=== PATIENT | male | born 1990 | race Caucasian/White ===

== ENCOUNTER 2020-12-17 08:19 | Outpatient (REF) | payer OTHER, SELFPAY | END 2020-12-17 08:20 | disposition home or self-care (01) | LOC: HO.HOSX 08:19 | PROVIDERS: Visit Provider Orthopaedic Surgery | DX: Z13.89 Encounter for screening for other disorder (principal) ==

== ENCOUNTER 2022-06-29 23:53 | Emergency (ER) | payer OTHER, SELFPAY ==
--- NOTE | ~2022-06-29 | XR_ITS ---
EXAMINATION: XR HAND, LEFT CLINICAL INFORMATION: Fall COMPARISON: 04/17/2018 TECHNIQUE: PA, lateral, and oblique views of the left hand. FINDINGS: No fracture or dislocation. Alignment maintained. Joint spaces are maintained. The soft tissues appear unremarkable. XR/XR hand LT 2V IMPRESSION: Normal left hand.
--- NOTE | ~2022-06-29 | XR_ITS ---
EXAMINATION: XR WRIST, LEFT CLINICAL INFORMATION: Fall with wrist pain COMPARISON: None TECHNIQUE: PA, lateral, and oblique views of the left wrist. FINDINGS: No fracture or dislocation. The carpal rows are well aligned. Joint spaces maintained. The soft tissues are unremarkable. XR/XR wrist LT min 3V IMPRESSION: No fracture or malalignment.
[2022-06-30 00:07] VITALS: BP 128/88; PULSE 84; RESP 16; TEMP 36.6; O2SAT 98; BMI 28.3
--- NOTE | 2022-06-30 01:15 | ED_ITS ---
HPI - Extremity Problem General Chief complaint: Extremity Injury, Upper Stated complaint: fall, hurt wrist Time Seen by Provider: 06/30/22 00:56 Source: patient Mode of arrival: ambulatory Limitations: no limitations History of Present Illness HPI Narrative: 31-year-old male came in for evaluation of left wrist pain after fall. Right hand dominant patient work as a dedicated truck driver and delivery came in after fell 2 steps of stairs landing on his outstretched hand and wrist complaining of left wrist pain and swelling. Patient declined headache, no LOC, no neck pain, no chest pain, no abdominal pain. Related Data Home Medications Medication Instructions Recorded Confirmed No Known Home Meds 11/20/20 12/05/20 Allergies Allergy/AdvReac Type Severity Reaction Status Date / Time amoxicillin [AMOXICILLIN] Allergy Unknown UNKNOWN Verified 06/30/22 00:11 Review of Systems Review of Systems: All other systems are reviewed and are negative Constitutional: Reports as per HPI and Reports no additional constitutional complaints Eyes: Reports as per HPI and Reports no additional eye complaints Reports system reviewed and no additional complaints, except as documented Cardiovascular: Reports as per HPI and Reports no additional cardiovascular complaints Respiratory: Reports as per HPI and Reports no additional respiratory complaints Gastrointestinal: Reports as per HPI and Reports no additional gastrointestinal complaints Genitourinary: Reports no additional female genitourinary complaints Musculoskeletal: Reports no additional musculoskeletal complaints Skin/Breast: Reports system reviewed and no additional complaints, except as docu Psychiatric: Reports no additional psychiatric complaints Endocrine: Reports no additional endocrine complaints Hematologic/Lymphatic: Reports no additional hematologic/lymphatic complaints Allergic/Immunologic: Reports no additional allergic/immunologic complaints Reports system reviewed and no additional complaints, except as documented and Reports Abnormal speech present [facility] Family History Family History Mother Prediabetes Afib Father No problems noted. Sister No problems noted. Sister No problems noted. Sister No problems noted. Son No problems noted. Daughter No problems noted. Maternal Uncle Myocardial infarct Maternal Aunt Myocardial infarct Social History Social History Housing: Apartment Alcohol intake: never Patient Tobacco Use Status: Never used Tobacco service: No Current occupational status: unemployed Current occupational exposures/hazards: No Physical Exam Vital Signs: Vital Signs: Last Vital Signs Temp 97.9 F 06/30/22 00:07 Pulse 84 06/30/22 00:07 Resp 16 06/30/22 00:07 BP 128/88 06/30/22 00:07 Pulse Ox 98 06/30/22 00:07 O2 Del Method 06/30/22 00:07 BMI result Body Mass Index 28.3 Vital signs have been reviewed as appeared to be correct. Blood pressure normal. Heart rate normal. Respiration rate normal. Temperature normal. Oxygen saturation normal. Appearance: Alert. Oriented X3. No acute distress. Head: Normal external exam. Normocephalic. Atraumatic. No Tucker signs noted. No raccoon eyes noted Eyes: PERRLA. EOMI. Conjunctiva and sclera normal. Eyelids normal. ENT: TM's Normal. Pharynx normal. Uvula midline. Moist mucous membranes. No trismus noted. No drooling noted. No muffled voice noted. Neck: Normal inspection. Neck supple. FROM. No adenopathy. Thyroid Normal. No meningeal signs. No neck mass noted. CVS: Normal heart rate and rhythm. Heart sound normal. No murmurs noted. Pulses normal throughout. Respiratory: No respiratory distress. Painless inspiration. Breath sounds normal. No wheezes/rales/rhonchi noted. Chest nontender. No accessory muscle usage noted or decreased air movement noted. Abdomen: Soft and nontender. Bowel sounds normal in all 4 quadrants. No distention noted. No organomegaly noted. No visible injury noted. Back: No CVA tenderness. Full range of motion noted. Skin: Skin warm and dry. Normal skin color. Normal skin turgor. No rash es/lesions/lacerations noted. Extremities: Left hand/wrist exam: Tenderness over the radial side of left wrist with no deformity, no step-off, tender for range of motion to the left wrist and left hand. Neuro: Oriented X 3. Cranial nerve exam: II-XII are grossly intact No motor deficit. No sensory deficit. Reflexes normal. Course Course Course Narrative: Left wrist contusion after trauma. ice/NSAIDs/follow-up with ortho/splint Medical Decision Making Differential Diagnosis Differential Diagnoses: The differential diagnosis associated with the presentation includes (Left wrist fracture, sprain, contusion.) Independent Interpretation I performed an independent interpretation of an: Plain X-Ray (Left hand/wrist: No acute fracture.) Radiology Impression Discussion of test interpretation with radiology: I have reviewed the radiologist's reading. Discharge Plan Discharge Clinical Impression: Contusion of left wrist Patient Disposition: Home, Self-Care Instructions: Wrist Injury (ED) Prescriptions: No Action No Known Home Meds Referrals: Antonio Cullen MD [Physician] - Physician,Unknown J [Primary Care Provider] - Stand Alone Forms: Work/School Release
== END 2022-06-30 01:56 | disposition home or self-care (01) ==
PROVIDERS: Emergency Provider Emergency Medicine; PCP Internal Medicine
DX: S60.212A Contusion of left wrist, initial encounter (principal); W10.8XXA Fall (on) (from) other stairs and steps, initial encounter; Y93.89 Activity, other specified; Y92.9 Unspecified place or not applicable; Y99.9 Unspecified external cause status
CPT/HCPCS: 73110; 73120; 99282; 99283

== ENCOUNTER 2022-07-21 14:14 | Outpatient (REF) | payer OTHER, SELFPAY ==
[2022-07-21 15:29] LABS: Hematocrit 46.7 % (42.0-52.0); Hemoglobin 15.7 g/dl (14.0-18.0); Mean Corpuscular HGB Conc 33.6 g/dl (31.0-36.0); Mean Corpuscular Hemoglobin 29.7 pg (27.0-33.0); Mean Corpuscular Volume 88.4 fL (80.0-98.0); Mean Platelet Volume 9.7 fL (9.4-12.4); Platelet Count 235 X10*3/uL (160-400); Red Blood Count 5.28 X10*6/uL (4.60-5.80); Red Cell Distribution Width 12.9 % (11.0-16.0); White Blood Count 8.7 X10*3/uL (4.8-10.8)
[2022-07-21 15:59] LABS: Alanine Aminotransferase 33 U/L (0-40); Albumin Level 4.3 g/dL (3.5-5.0); Alkaline Phosphatase 75 U/L (39-117); Anion Gap 11 (12-20); Aspartate Amino Transferase 16 U/L (5-37); Bilirubin Total 0.2 mg/dL (0.0-1.0); Blood Urea Nitrogen 13 mg/dL (9-16); Calcium 9.2 mg/dL (8.4-10.2); Carbon Dioxide 29 mmol/L (22-29); Chloride 105 mmol/L (96-108); Estimated Glomerular Filt Rate > 60; Glucose Random 85 mg/dL (60-115); Potassium 3.7 mmol/L (3.3-5.1); Sodium 141 mmol/L (135-145); Total Protein 6.7 g/dL (6.5-8.0)
[2022-07-21 16:14] LABS: TSH reflex Free T4 1.62 uIU/mL (0.32-4.0); Vitamin D 25-OH Total 19.5 ng/mL (>30)
== END 2022-07-21 14:15 | disposition home or self-care (01) ==
LOC: HO.LAB 14:14
PROVIDERS: PCP Internal Medicine; Visit Provider Nurse Practitioner Family
DX: F32.A Depression, unspecified (principal)
CPT/HCPCS: 36415; 80053; 82306; 84443; 85027

== ENCOUNTER 2022-08-25 14:13 | Outpatient (REF) | payer OTHER, SELFPAY | END 2022-08-25 14:14 | disposition home or self-care (01) | LOC: HO.HOSX 14:13 | PROVIDERS: Visit Provider Physician Assistant | DX: Z13.89 Encounter for screening for other disorder (principal) ==

== ENCOUNTER 2022-11-29 12:37 | Emergency (ER) | payer OTHER, SELFPAY ==
--- NOTE | ~2022-11-29 | XR_ITS ---
EXAMINATION: XR CHEST CLINICAL INFORMATION: Heart racing. COMPARISON: None available. TECHNIQUE: Frontal view of the chest was obtained. FINDINGS: No significant abnormality is noted involving the heart, lungs, mediastinum, bony thorax or soft tissues. XR/XR chest 1V IMPRESSION: No acute cardiopulmonary process.
[2022-11-29 12:44] VITALS: BP 139/98; PULSE 85; RESP 18; TEMP 36.7; O2SAT 99; BMI 28.4
--- NOTE | 2022-11-29 12:44 | ED_ITS ---
HPI - General Adult General Chief complaint: Arrhythmia/Palpitations Stated complaint: chest pain Time Seen by Provider: 11/29/22 16:02 Source: patient Mode of arrival: ambulatory Limitations: no limitations History of Present Illness HPI narrative: 31-year-old male with history of asthma presents to the ER with complaints of onset of palpitations, shortness of breath, disorientation which began at 10:00 while he was sitting down fishing. Patient reports intermittent episodes every 15 minutes for 1 hour after initial onset. Patient reports no current symptoms. Symptoms were not exertion. He had no associated vomiting, diaphoresis, dizziness, headache, cough or fever. Patient report daily caffeine intake. Denies any pre workout use, energy drink use. No recent travel, recent surgeries, leg swelling or leg pain. Patient does smoke cigarettes, occasional marijuana use. No additional substance or alcohol use Related Data Previous Rx's Medication Instructions Recorded hydroxyzine HCl 25 mg tablet 25 mg PO BID PRN anxiety #14 tabs 07/21/22 sertraline 25 mg tablet 25 mg PO DAILY #30 tabs 07/21/22 cholecalciferol (vitamin D3) 50 50 mcg PO DAILY #90 tabs 07/24/22 mcg (2,000 unit) tablet Allergies Allergy/AdvReac Type Severity Reaction Status Date / Time amoxicillin [AMOXICILLIN] Allergy Unknown UNKNOWN Verified 07/21/22 13:39 Review of Systems Review of Systems: Yes all other systems are reviewed and are negative Constitutional: Constitutional: Reports no additional constitutional complaints, Denies body ache(s), Denies chills, Denies fever(s), Denies he adache(s) and Denies weakness Eyes: Eyes: Reports no additional eye complaints and Denies change in vision ENT: Reports system reviewed and no additional complaints, except as documented, Denies dizziness, Denies headache(s), Denies nasal congestion, Denies nasal discharge and Denies neck pain Cardiovascular: Cardiovascular: Reports no additional cardiovascular complaints, Denies chest pain, Denies leg edema, Reports palpitations and Reports dyspnea Respiratory: Respiratory: Reports no additional respiratory complaints, Denies cough and Reports dyspnea Gastrointestinal: Gastrointestinal: Reports no additional gastrointestinal complaints, Denies abdominal pain, Denies diarrhea, Denies nausea and Denies vomiting Genitourinary: Genitourinary: Denies urinary incontinence Musculoskeletal: Musculoskeletal: Reports no additional musculoskeletal complaints, Denies back pain, Denies arthralgias, Denies joint swelling, Denies neck pain, Denies numbness and Denies tingling Integumentary/Breasts: Skin/Breast: Reports system reviewed and no additional complaints, except as docu and Denies rash Neurologic: Reports system reviewed and no additional complaints, except as documented, Denies dizziness, Denies headache(s), Denies numbness, Denies tingling and Denies weakness Endocrine: Endocrine: Reports palpitations PMFSH Past Medical History Attestation statement: The following information was validated with the patient. Source: old records reviewed and nursing notes reviewed Family History Family History Mother Prediabetes Afib Father No problems noted. Sister No problems noted. Sister No problems noted. Sister No problems noted. Son No problems noted. Daughter No problems noted. Maternal Uncle Myocardial infarct Maternal Aunt Myocardial infarct Social History Social History Housing: Apartment Alcohol intake: never Patient Tobacco Use Status: Current everyday Tobacco user Cigarettes Per Day: 3 (pt states 3-5) Advance Directives: No Advance Directives Information Provided: Yes service: No Current occupational status: unemployed Current occupational exposures/hazards: No Cognitive needs: No Hearing needs: No Vision needs: No Physical Exam ED Vital Signs: Vital Signs - 24 hr 11/29/22 12:44 11/29/22 15:11 11/29/22 16:50 Temperature 98.1 F 98.4 F 98.6 F Pulse Rate 85 58 45 L Respiratory Rate 18 16 10 L Blood Pressure 139/98 H 126/77 113/63 Pulse Oximetry 99 98 100 Oxygen Delivery Method Room Air Room Air Room Air BMI result Body Mass Index 28.4 Const General: cooperative, healthy appearing, comfortable and no acute distress Orientation/consciousness: patient oriented x3 Limitations: no limitations HENMT Head: Yes normal to inspection Ears: hearing grossly normal bilaterally Eyes General: appearance normal, both eyes and all related structures Pupils: Equal, round and reactive pupils present Neck Neck: Yes normal visual inspection, Yes full ROM, Yes no lymphadenopathy and Yes no meningeal signs Chest Chest palpation & inspection: normal inspection of the chest Resp Effort & Inspection: normal respiratory effort Auscultation: clear to auscultation bilaterally Cardio Rate: regular rate Rhythm: regular rhythm Peripheral pulses: Peripheral pulses 2+ throughout GI Inspection: Yes normal to inspection Palpation (GI): Soft to palpation and nontender General: Yes no CVA tenderness Back/Spine/Pelvis Back: no CVA tenderness Thoracic/Lumbar Spine: thoracic and lumbar spine normal to inspection Skin General skin exam: no rashes or lesions noted Neuro General: patient oriented x3, moves all extremities and no meningeal signs Cranial nerves: Yes Equal, round and reactive pupils present Cognition (Neuro): normal cognition Gait exam (Neuro): Normal gait present Motor exam (neuro): 5/5 motor strength present throughout Sensory Exam: Normal double simultaneous stimulation for sensation Extrem General: Yes normal to inspection, Yes no pedal edema and Yes no calf tenderness Course Course Course Narrative: RME: 31 yold male presents to the ED for heart racing. no other complaints. no SOB, pleurisy, leg swelling, calf pain. labs, EKG, and chest xray ordered Reevaluation(s) Reevaluation #1: LABS WITH TROPONIN X2 ARE NEGATIVE, EKG SHOWS NO ISCHEMIC CHANGES. Chest x-ray is negative for any acute finding. Reviewed worrisome signs and symptoms of when to return to the emergency room. Comfortable plan for discharge home. Medical Decision Making Medical Decision Making [facility] Narrative: 31-year-old male with a history of asthma presents to the ER with 1 hour of intermittent episodes of palpitations, shortness of breath which began at 10:00 this morning while at rest. Patient is currently asymptomatic Will check labs including troponin x2, EKG, chest x-ray Differential Diagnosis Differential Diagnoses: The differential diagnosis associated with the presentation includes ACS, PE, dissection Arrhythmia Anxiety Anemia, electrolyte abnormality Lab Data [facility] Lab Attestation statement: I reviewed the patient's lab results. 11/29/22 13:05 11/29/22 13:06 Labs: Lab Results 11/29/22 11/29/22 11/29/22 Range/Units 13:05 13:05 13:06 WBC 5.7 (4.8-10.8) X10*3/uL RBC 5.18 (4.60-5.80) X10*6/uL Hgb 15.7 (14.0-18.0) g/dl Hct 45.9 (42.0-52.0) % MCV 88.6 (80.0-98.0) fL MCH 30.3 (27.0-33.0) pg MCHC 34.2 (31.0-36.0) g/dl RDW 12.8 (11.0-16.0) % Plt Count 198 (160-400) X10*3/uL MPV 9.3 L (9.4-12.4) fL Immature Gran % (Auto) 0.2 (0.0-0.4) % Neut % (Auto) 47.5 (45-73) % Lymph % (Auto) 38.8 (20-40) % [place] % (Auto) 11.2 H (2-11) % Eos % (Auto) 1.6 (0-4) % Baso % (Auto) 0.7 (0-2) % Lymph # (Auto) 2.2 (1.2-4.9) X10*3/uL [place] # (Auto) 0.6 (0.1-1.2) X10*3/uL Eos # (Auto) 0.1 (0.0-0.4) X10*3/uL Baso # (Auto) 0.0 (0.0-0.2) X10*3/uL Abs Immat Gran (auto) 0.01 (0.00-0.03) X10*3/uL Absolute Neuts (auto) 2.7 (2.0-8.3) x10*3/uL Absolute Nucleated RBC 0.000 (0.0-0.012) X10*3/uL Nucleated RBC % (auto) 0.0 (0.0-0.2) /100WBC PT 11.6 (10.0-13.1) SEC INR 1.0 (0.9-1.1) APTT 31.6 (26.0-36.4) SEC Sodium (135-145) mmol/L Potassium (3.3-5.1) mmol/L Chloride (96-108) mmol/L Carbon Dioxide (22-29) mmol/L Anion Gap (12-20) BUN (9-16) mg/dL Creatinine (0.5-1.4) mg/dL Estim Creat Clear Calc Estimated GFR Random Glucose (60-115) mg/dL Calcium (8.4-10.2) mg/dL Total Bilirubin (0.0-1.0) mg/dL AST (5-37) U/L ALT (0-40) U/L Alkaline Phosphatase (39-117) U/L Troponin I High Sens (<3.5-35.0) ng/L B-Natriuretic Peptide 40 (<100) pg/mL Total Protein (6.5-8.0) g/dL Albumin (3.5-5.0) g/dL 11/29/22 11/29/22 11/29/22 Range/Units 13:06 13:06 16:58 WBC (4.8-10.8) X10*3/uL RBC (4.60-5.80) X10*6/uL Hgb (14.0-18.0) g/dl Hct (42.0-52.0) % MCV (80.0-98.0) fL MCH (27.0-33.0) pg MCHC (31.0-36.0) g/dl RDW (11.0-16.0) % Plt Count (160-400) X10*3/uL MPV (9.4-12.4) fL Immature Gran % (Auto) (0.0-0.4) % Neut % (Auto) (45-73) % Lymph % (Auto) (20-40) % [place] % (Auto) (2-11) % Eos % (Auto) (0-4) % Baso % (Auto) (0-2) % Lymph # (Auto) (1.2-4.9) X10*3/uL [place] # (Auto) (0.1-1.2) X10*3/uL Eos # (Auto) (0.0-0.4) X10*3/uL Baso # (Auto) (0.0-0.2) X10*3/uL Abs Immat Gran (auto) (0.00-0.03) X10*3/uL Absolute Neuts (auto) (2.0-8.3) x10*3/uL Absolute Nucleated RBC (0.0-0.012) X10*3/uL Nucleated RBC % (auto) (0.0-0.2) /100WBC PT (10.0-13.1) SEC INR (0.9-1.1) APTT (26.0-36.4) SEC Sodium 142 (135-145) mmol/L Potassium 4.3 (3.3-5.1) mmol/L Chloride 111 H (96-108) mmol/L Carbon Dioxide 24 (22-29) mmol/L Anion Gap 11 L (12-20) BUN 13 (9-16) mg/dL Creatinine 1.07 (0.5-1.4) mg/dL Estim Creat Clear Calc 123.0 Estimated GFR > 60 Random Glucose 122 H (60-115) mg/dL Calcium 9.3 (8.4-10.2) mg/dL Total Bilirubin 0.4 (0.0-1.0) mg/dL AST 16 (5-37) U/L ALT 29 (0-40) U/L Alkaline Phosphatase 62 (39-117) U/L Troponin I High Sens < 2.7 < 2.7 (<3.5-35.0) ng/L B-Natriuretic Peptide (<100) pg/mL Total Protein 6.9 (6.5-8.0) g/dL Albumin 4.5 (3.5-5.0) g/dL Independent Interpretation I performed an independent interpretation of an: Plain X-Ray Interpretation: I independently reviewed the chest x-ray and agree with the radiologist's report I independently reviewed EKG which shows sinus rhythm with sinus arrhythmia with a rate of 67, normal NM, normal QRS, normal QT Radiology Impression Discussion of test interpretation with radiology: I have reviewed the radiologist's reading. Radiologist Impression: [place] [id number] XRay Report Signed Patient: Jose Begum MR#: [id number] : 1990 Acct:[id number] Age/Sex: 31 / M ADM Date: 11/29/22 Loc: .ED Attending Dr: Ordering Physician: Beau Espinoza Date of Service: 11/29/22 Procedure(s): XR chest 1V Accession Number(s): [id number] cc: Beau Espinoza~ EXAMINATION: XR CHEST CLINICAL INFORMATION: Heart racing. COMPARISON: None available. TECHNIQUE: Frontal view of the chest was obtained. FINDINGS: No significant abnormality is noted involving the heart, lungs, mediastinum, bony thorax or soft tissues. XR/XR chest 1V IMPRESSION: No acute cardiopulmonary process. ? Discharge Plan Discharge Clinical Impression: Palpitations Patient Disposition: Home, Self-Care Instructions: Heart Palpitations (DC) Additional Instructions: Your blood work, EKG and chest x-ray are reassuring Please follow-up with your primary care doctor outpatient Please limit caffeine intake Prescriptions: No Action cholecalciferol (vitamin D3) 50 mcg (2,000 unit) tablet 50 mcg PO DAILY Qty: 90 0RF sertraline 25 mg tablet 25 mg PO DAILY Qty: 30 2RF hydroxyzine HCl 25 mg tablet 25 mg PO BID PRN (Reason: anxiety) Qty: 14 0RF Referrals: Po,Jo Ann Mukherjee MD [Primary Care Provider] - 1 week Interventions: ED Discharge Assessment Last Done: 11/29/22 17:55 Discharge Date/Time: 11/29/22 17:55
--- NOTE | 2022-11-29 12:45 | ECG_ITS ---
Test Reason : chest pain Blood Pressure : / mmHG Vent. Rate : 067 BPM Atrial Rate : 067 BPM P-R Int : 156 ms QRS Dur : 092 ms QT Int : 382 ms P-R-T Axes : 042 025 038 degrees QTc Int : 403 ms Sinus rhythm with marked sinus arrhythmia Otherwise normal ECG No previous ECGs available Referred By: Beau Espinoza Electronically Signed By:Brian Kelly
[2022-11-29 13:10] LABS: MANUAL DIFF FLAG NO
[2022-11-29 13:11] LABS: Basophils Percent Auto 0.7 % (0-2); Eosinophils Absolute Auto 0.1 X10*3/uL (0.0-0.4); Eosinophils Percent Auto 1.6 % (0-4); Hematocrit 45.9 % (42.0-52.0); Hemoglobin 15.7 g/dl (14.0-18.0); Imm Gran Abs Auto 0.01 X10*3/uL (0.00-0.03); Imm Gran Pct Auto 0.2 % (0.0-0.4); Lymphocytes Absolute Auto 2.2 X10*3/uL (1.2-4.9); Lymphocytes Percent Auto 38.8 % (20-40); Mean Corpuscular HGB Conc 34.2 g/dl (31.0-36.0); Mean Corpuscular Hemoglobin 30.3 pg (27.0-33.0); Mean Corpuscular Volume 88.6 fL (80.0-98.0); Mean Platelet Volume 9.3 fL (9.4-12.4); Monocytes Absolute Auto 0.6 X10*3/uL (0.1-1.2); Monocytes Percent Auto 11.2 % (2-11); Neutrophils Absolute Auto 2.7 x10*3/uL (2.0-8.3); Neutrophils Percent Auto 47.5 % (45-73); Platelet Count 198 X10*3/uL (160-400); Red Blood Count 5.18 X10*6/uL (4.60-5.80); Red Cell Distribution Width 12.8 % (11.0-16.0); White Blood Count 5.7 X10*3/uL (4.8-10.8)
[2022-11-29 13:17] LABS: Prothrombin Time 11.6 SEC (10.0-13.1)
[2022-11-29 13:20] LABS: Partial Thromboplastin Time 31.6 SEC (26.0-36.4)
[2022-11-29 13:25] LABS: Alanine Aminotransferase 29 U/L (0-40); Albumin Level 4.5 g/dL (3.5-5.0); Alkaline Phosphatase 62 U/L (39-117); Anion Gap 11 (12-20); Aspartate Amino Transferase 16 U/L (5-37); Bilirubin Total 0.4 mg/dL (0.0-1.0); Blood Urea Nitrogen 13 mg/dL (9-16); Calcium 9.3 mg/dL (8.4-10.2); Carbon Dioxide 24 mmol/L (22-29); Chloride 111 mmol/L (96-108); Estimated Glomerular Filt Rate > 60; Glucose Random 122 mg/dL (60-115); Potassium 4.3 mmol/L (3.3-5.1); Sodium 142 mmol/L (135-145); Total Protein 6.9 g/dL (6.5-8.0)
[2022-11-29 13:31] LABS: B Type Natriuretic Peptide 40 pg/mL (<100)
[2022-11-29 13:37] LABS: Troponin-I High Sensitivity < 2.7 ng/L (<3.5-35.0)
[2022-11-29 15:11] VITALS: BP 126/77; PULSE 58; RESP 16; TEMP 36.9; O2SAT 98
--- NOTE | 2022-11-29 15:19 | MHC.EDTECH ---
pt placed on parking analyst, NSR.
[2022-11-29 16:50] VITALS: BP 113/63; PULSE 45; RESP 10; TEMP 37; O2SAT 100
[2022-11-29 17:39] LABS: Troponin-I High Sensitivity < 2.7 ng/L (<3.5-35.0)
== END 2022-11-29 17:55 | disposition home or self-care (01) ==
PROVIDERS: Nurse Practitioner Family; Physician Assistant; Emergency Provider Internal Medicine; PCP Internal Medicine
DX: R07.89 Other chest pain (principal); R00.2 Palpitations; R06.02 Shortness of breath; Z79.899 Other long term (current) drug therapy; F17.210 Nicotine dependence, cigarettes, uncomplicated; Z71.6 Tobacco abuse counseling
CPT/HCPCS: 36415; 71045; 80053; 83880; 84484; 85025; 85610; 85730; 93005; 99283; 99284

== ENCOUNTER 2023-01-07 21:11 | Emergency (ER) | payer OTHER, SELFPAY ==
--- NOTE | ~2023-01-07 | XR_ITS ---
EXAMINATION: XR SOFT TISSUE NECK CLINICAL INDICATION: Dysphagia. COMPARISON: None available. TECHNIQUE: 2 views of the soft tissue neck were obtained. FINDINGS: Soft tissue films of the neck demonstrate a normal larynx, pharynx and upper trachea. No soft tissue swelling or opaque foreign body is demonstrated. XR/XR soft tissue neck IMPRESSION: No significant radiographic abnormality, correlation with a CT neck could be obtained as clinically indicated.
[2023-01-07 21:28] VITALS: BP 134/80; PULSE 76; RESP 18; TEMP 36.9; O2SAT 96; BMI 28.4
--- NOTE | 2023-01-07 23:10 | ED_ITS ---
HPI - General Adult General Chief complaint: General Medical Stated complaint: Diff swallowing/diff breathing Time Seen by Provider: 01/07/23 23:09 Source: patient Mode of arrival: ambulatory Limitations: no limitations History of Present Illness HPI narrative: Patient history of anxiety not taking his medication use of THC been noticing spasm in the throat whenever he tries to eat something but no nausea no vomiting able to swallow concern about weight loss but per records has not lost significant weight has seen his PCP but no further investigation was done no fever no chills no thyroid problem Related Data Previous Rx's Medication Instructions Recorded hydroxyzine HCl 25 mg tablet 25 mg PO BID PRN anxiety #14 tabs 07/21/22 sertraline 25 mg tablet 25 mg PO DAILY #30 tabs 07/21/22 cholecalciferol (vitamin D3) 50 50 mcg PO DAILY #90 tabs 07/24/22 mcg (2,000 unit) tablet Allergies Allergy/AdvReac Type Severity Reaction Status Date / Time amoxicillin [AMOXICILLIN] Allergy Unknown UNKNOWN Verified 01/07/23 21:27 Review of Systems Review of Systems: Yes all other systems are reviewed and are negative [facility] Family History Family History Mother Prediabetes Afib Father No problems noted. Sister No problems noted. Sister No problems noted. Sister No problems noted. Son No problems noted. Daughter No problems noted. Maternal Uncle Myocardial infarct Maternal Aunt Myocardial infarct Social History Social History Housing: Apartment Alcohol intake: never Patient Tobacco Use Status: Current everyday Tobacco user Cigarettes Per Day: 3 (pt states 3-5) Advance Directives: No Advance Directives Information Provided: No service: No Current occupational status: unemployed Current occupational exposures/hazards: No Cognitive needs: No Hearing needs: No Vision needs: No Physical Exam ED Vital Signs: Vital Signs - 24 hr 01/07/23 21:28 Temperature 98.4 F Pulse Rate 76 Respiratory Rate 18 Blood Pressure 134/80 Pulse Oximetry 96 Oxygen Delivery Method Room Air BMI result Body Mass Index 28.4 Appearance: Alert. Oriented X3. No acute distress. Anxious Eyes: PERRLA, No Nystagmus ENT: Pharynx normal. Oral Mucosa moist Neck: Normal inspection. Neck supple. No stridor CVS: Normal heart rate and rhythm. Pulses normal. Respiratory: No respiratory distress. Equal air entry bilateral, no wheezing/rales/rhonchi Abdomen: Soft and nontender. Bowel sounds are present, no mass palpable, no CVA tenderness Skin: Skin warm and dry. Normal skin color. Normal skin turgor. Extremities: No lower extremity edema. No calf tenderness Neuro: Oriented X 3. No motor deficit. Medical Decision Making Medical Decision Making MDM Narrative: Patient x-ray negative for any obstructive lesion likely has globus hystericus with anxiety discharge patient home advised to follow-up with PCP/GI thyroid not palpable Discharge Plan Discharge Clinical Impression: Globus sensation Patient Disposition: Home, Self-Care Instructions: Dysphagia (ED) Additional Instructions: Likely have dysphagia secondary to muscle spasm Possible anxiety is a contributing factor Follow with PCP/GI for further evaluation Drink plenty of fluids Taking medication for anxiety Prescriptions: No Action cholecalciferol (vitamin D3) 50 mcg (2,000 unit) tablet 50 mcg PO DAILY Qty: 90 0RF sertraline 25 mg tablet 25 mg PO DAILY Qty: 30 2RF hydroxyzine HCl 25 mg tablet 25 mg PO BID PRN (Reason: anxiety) Qty: 14 0RF Referrals: Barbara Patel MD [Physician] - 2 weeks Interventions: ED Discharge Assessment Last Done: 01/08/23 01:13 Discharge Date/Time: 01/08/23 01:13
== END 2023-01-08 01:13 | disposition home or self-care (01) ==
PROVIDERS: Emergency Provider Internal Medicine; PCP Internal Medicine
DX: F45.8 Other somatoform disorders (principal); F41.9 Anxiety disorder, unspecified; F12.90 Cannabis use, unspecified, uncomplicated; Z79.899 Other long term (current) drug therapy
CPT/HCPCS: 70360; 99283

== ENCOUNTER 2023-01-26 10:28 | Outpatient (AMB) | payer OTHER, SELFPAY ==
--- NOTE | 2023-01-26 10:31 | MHC.PC.OV ---
Vital Signs 01/26/23 10:32 Height 6 ft 1 in Weight 211 lb BMI 27.8 BP 130/78 Blood Pressure Location Rt brachial Position Sitting Pulse 72 Pulse Source Pulse Oximeter Pulse Oximetry (%) 97 Oxygen Delivery Method Room Air Intake Visit Reasons: Discuss upper GI results Intake Note: pt is here for upper GI results Screening Nurse Required: No Accompanied by: Self / Same As Patient Allergies amoxicillin [AMOXICILLIN] Allergy (Unknown, Verified 01/26/23 10:38) UNKNOWN Medication List - Last Reconciled 01/26/23 by Walter Oleary PA-C cholecalciferol (vitamin D3) 50 mcg PO DAILY hydroxyzine HCl 25 mg PO BID PRN sertraline 25 mg PO DAILY Tobacco use date assessed: 07/21/22 Dental Screening Dental Screen Date: 01/26/23 Did you have a dental visit in the last 12 months?: Yes Did you have a dental problem in the last 6 months where you did not have access to dental care?: No Was dental information given to patient?: Patient has dentist HPI Discuss upper GI results HPI Details Patient is a 32-year-old male here today for an ER follow-up visit. Patient was complaining of difficulty swallowing and irritation in his throat. X-ray of neck was negative, labs are stable. He report he feels his dysphagia has been evident over the last year that progessivly worsening over the last 3 months. He reports he has and neck and head spasm when he tries to swallow solids. Has not had any major choking episodes. He is concerned about this and would like further treatment. There are some thought that his dysphagia could be related to his anxiety. Has not been consistent with the use of sertraline as it does not feel he can feel well. [facility] Family History Mother Prediabetes Afib Father No problems noted. Sister No problems noted. Sister No problems noted. Sister No problems noted. Son No problems noted. Daughter No problems noted. Maternal Uncle Myocardial infarct Maternal Aunt Myocardial infarct Social History Housing: Apartment Alcohol intake: never Patient Tobacco Use Status: Current everyday Tobacco user Cigarettes Per Day: 3 (pt states 3-5) e-Cigarette/Vaping Use: Never Used service: No Current occupational status: unemployed Current occupational exposures/hazards: No Cognitive needs: No Hearing needs: No Vision needs: No Questionnaire Thrive Questionnaire Date Thrive assessed: 07/21/22 MAMADOU-7 AMB Questionnaire MAMADOU-7 Date MAMADOU - 7 assessed: 07/21/22 Source: Developed by Drs. Jay Douglas, Traci Adkins, Aubrey Reid and colleagues, with an educational casey from [employer]. Review of Systems Const Denies headache(s) Eyes Denies loss of vision ENT Denies vertigo, Denies dizziness, Denies headache(s) and Denies sore throat Card Denies chest pain, Denies leg edema and Denies lightheadedness Resp Denies cough, Denies hemoptysis and Denies wheezing GI Details: + dysphagia Denies abdominal pain, Denies melena, Denies constipation, Denies diarrhea and Denies vomiting Denies dysuria, Denies urinary frequency and Denies urinary urgency Musc Denies arthralgias, Denies joint swelling, Denies numbness and Denies tingling Neuro Denies Abnormal speech present, Denies behavioral changes, Denies vertigo, Denies dizziness, Denies headache(s), Denies loss of vision, Denies memory loss, Denies numbness and Denies tingling Psych Denies anxiety, Denies behavioral changes, Denies depression, Denies memory loss and Denies panic attacks Maurice/Lymph Denies easy bleeding and Denies easy bruising Aller/Immun Denies wheezing Physical exam (Primary Care) Vital Signs: Last Vital Signs Pulse 72 01/26/23 10:32 BP 130/78 01/26/23 10:32 Pulse Ox 97 01/26/23 10:32 Oxygen Delivery Method Room Air 01/26/23 10:32 BMI result Body Mass Index 27.8 Tobacco/Smoking Status: Tobacco use Status Tobacco use date assessed 07/21/22 01/26/23 10:35 Patient Tobacco Use Status Current everyday Tobacco 01/26/23 10:35 Tobacco use type 12/05/20 17:18 e-Cigarette/Vaping Use Never Used 01/26/23 10:37 Thrive Assessment: Date of Thrive Assessment Date Thrive assessed 07/21/22 01/26/23 10:35 Const General: healthy appearing, no acute distress, alert and awake Nutritional Appearance: well nourished Orientation/consciousness: oriented to person, oriented to place and oriented to time HENMT Ears: TM's normal bilaterally General nose exam: Normal nasal mucous membranes and turbinates present Eyes Conjunctivae: conjunctivae normal Sclerae: sclerae normal Pupils: Equal, round and reactive pupils present Neck Neck: Yes no lymphadenopathy and Yes no JVD Thyroid: Thyroid normal Carotids: no bruits Resp Effort & Inspection: normal respiratory effort and not tachypneic Auscultation: no crackles, no rales, no rhonchi and no wheezes Cardio Rate: regular rate Rhythm: regular rhythm Heart sounds: no murmurs and normal S1 and S2 GI Palpation (GI): Soft to palpation, nontender, no hepatomegaly and no splenomegaly Auscultation: normal bowel sounds Skin General skin exam: no rashes or lesions noted and dry skin Neuro General: oriented to person, oriented to place and oriented to time Cranial nerves: Yes Equal, round and reactive pupils present Speech: No Abnormal speech present Gait exam (Neuro): Normal gait present Motor exam (neuro): no tremor noted Extrem Right upper extremity: full ROM Left upper extremity: full ROM Right lower extremity: full ROM; no edema Left lower extremity: full ROM; no edema Psych Mental Status: mental status grossly normal Speech and movement: Normal speech and movement present Affect: normal affect Attitude: cooperative Thought process: Normal thought process present Assessment and Plan Assessment & Plan (1) Difficulty swallowing: Code(s): R13.10 - Dysphagia, unspecified Qualifiers: Dysphagia type: oropharyngeal phase Qualified Code(s): R13.12 - Dysphagia, oropharyngeal phase Plan: Patient's signs symptoms are concerning for esophageal spasm. He has an upcoming barium swallow for evaluation. Will try antacid and dicyclomine to help with GI smooth muscle spasms. If treatment fails will consider Gastroenterology evaluation for possible endoscopy. Can consider alternative treatment for anxiety with Celexa and or trazodone. (2) GERD (gastroesophageal reflux disease): Code(s): K21.9 - Gastro-esophageal reflux disease without esophagitis Qualifiers: Esophagitis presence: without esophagitis Qualified Code(s): K21.9 - Gastro-esophageal reflux disease without esophagitis Plan: As above will trial PPI Orders: Referrals Gastroenterology Referral R13.12 - Dysphagia, oropharyngeal phase Medications: New omeprazole 20 mg PO DAILY 30 days 30 caps 0RF K21.9 - Gastro-esophageal reflux disease without esophagitis dicyclomine 20 mg PO TID 15 days 45 tabs 0RF K21.9 - Gastro-esophageal reflux disease without esophagitis Discontinued sertraline Discontinued Reason: Doctor's Order 25 mg PO DAILY 30 tabs 2RF F32.A - Depression, unspecified, F41.9 - Anxiety disorder, unspecified Coding Level of Care Code Est Pt Level 4 (74703) Diagnoses Difficulty swallowing R13.12 Dysphagia type: oropharyngeal phase GERD (gastroesophageal reflux disease) K21.9 Esophagitis presence: without esophagitis
[2023-01-26 10:32] VITALS: BP 130/78; PULSE 72; O2SAT 97; BMI 27.8
== END 2023-01-26 11:27 | disposition home or self-care (01) ==
PROVIDERS: PCP Internal Medicine; Visit Provider Physician Assistant
DX: R13.12 Dysphagia, oropharyngeal phase (principal); K21.9 Gastro-esophageal reflux disease without esophagitis
CPT/HCPCS: 99214

== ENCOUNTER 2023-08-14 09:32 | Outpatient (AMB) | payer OTHER, SELFPAY ==
--- NOTE | 2023-08-14 09:53 | MHC.OFFWIV ---
Intake Vital Signs 08/14/23 09:55 Height 6 ft 1 in Weight 217 lb BMI 28.6 BP 122/80 Blood Pressure Location Rt brachial Position Sitting Pulse 89 Pulse Source Pulse Oximeter Temp 98 F Temp Source Oral Pulse Oximetry (%) 98 Oxygen Delivery Method Room Air Intake Visit Reasons: EP cough chest/sinus congestion Intake Note: [id number] here for possible sinus infection which has developed about 5 days ago. pt states his whole house is going through this. Patient Tobacco Use Status: Current everyday Tobacco user Allergies amoxicillin [AMOXICILLIN] Allergy (Unknown, Verified 08/14/23 09:56) UNKNOWN Do you need a note to return to daycare/school/sports/work: No HPI HPI Comments History of Present Illness Details He presents to office wth congestion, cough and wheezing 5 days ongoing Hx of asthma occasionally without inhaler his and kids were on antibotics recently ztried mycinex, dayquil, tylenol No fevers He said ST with cough which resolved No ear pain PFSH Family History Mother Prediabetes Afib Father No problems noted. Sister No problems noted. Sister No problems noted. Sister No problems noted. Son No problems noted. Daughter No problems noted. Maternal Uncle Myocardial infarct Maternal Aunt Myocardial infarct Social History Housing: Apartment Alcohol intake: never Patient Tobacco Use Status: Current everyday Tobacco user Cigarettes Per Day: 3 (pt states 3-5) e-Cigarette/Vaping Use: Never Used service: No Current occupational status: unemployed Current occupational exposures/hazards: No Cognitive needs: No Hearing needs: No Vision needs: No Review of Systems Const Denies body aches, Denies chills, Denies fever(s) and Denies headache(s) Eyes Denies blurry vision ENT Denies otalgia, Denies headache(s), Reports nasal congestion, Reports nasal discharge, Reports sore throat and Denies throat swelling Card Denies chest pain and Denies dyspnea Resp Reports chest congestion, Reports cough, Denies dyspnea and Reports wheezing GI Denies abdominal pain Neuro Denies headache(s) Aller/Immun Denies throat swelling and Reports wheezing Physical Exam Vital Signs: Last Vital Signs Temp 98 F 08/14/23 09:55 Pulse 89 08/14/23 09:55 BP 122/80 08/14/23 09:55 Pulse Ox 98 08/14/23 09:55 Oxygen Delivery Method Room Air 08/14/23 09:55 BMI result Body Mass Index 28.6 General: Non-toxic, NAD. Speaking full sentences. Skin: Warm dry throughout Eye: EOMI HENT: + clear rhinorrhea. Airway patent. Uvula midline. No pharyngeal erythema or edema. No [employer] PROFESSIONAL. Bilateral canals clear. TM non-erythematous, non-bulging. No TM perforation or hemotympanum noted. Respiratory: CTA bilaterally. No wheezes, rales or rhonchi Cardiac: RRR. No murmur MSK: Full ROM extremities. Neurology: A/O. No aphasia or facial droop. Gait without abnormality Psych: Good mood and affect Assessment & Plan Assessment & Plan (1) Upper respiratory infection: Code(s): J06.9 - Acute upper respiratory infection, unspecified Qualifiers: URI type: unspecified viral URI Qualified Code(s): J06.9 - Acute upper respiratory infection, unspecified Plan: Patient seen and evaluated. Discussed viral in etiology Will trial prednisone with food; avoid NSAIDs and alcohol ad tessalon If worse after 4 days advised to call for ? z pack if needed Patient gave verbal understanding and had no additional questions or concerns at time of discharge All questions answered Medications: New prednisone 40 mg (2 x 20 mg) PO DAILY 8 tabs 0RF 4 days benzonatate 200 mg PO BID-TID PRN 14 caps 0RF cough Coding Level of Care Code Est Pt Level 3 (71037) Diagnoses Viral upper respiratory tract infection J06.9 URI type: unspecified viral URI
[2023-08-14 09:55] VITALS: BP 122/80; PULSE 89; TEMP 36.6; O2SAT 98; BMI 28.6
== END 2023-08-14 11:17 | disposition home or self-care (01) ==
PROVIDERS: PCP Internal Medicine; Visit Provider Physician Assistant
DX: J06.9 Acute upper respiratory infection, unspecified (principal)
CPT/HCPCS: 99051; 99213

== ENCOUNTER 2023-08-17 12:03 | Outpatient (AMB) | payer OTHER, SELFPAY ==
--- NOTE | 2023-08-17 12:04 | A.OFFPC_ITS ---
Intake Visit Reasons: ? Sinus Infection Allergies amoxicillin [AMOXICILLIN] Allergy (Unknown, Verified 08/17/23 12:07) UNKNOWN Medication List - Last Reconciled 08/17/23 by Jo Ann Segura MD benzonatate 200 mg PO BID-TID PRN doxycycline hyclate 100 mg PO BID prednisone 40 mg (2 x 20 mg) PO DAILY 4 days Tobacco use date assessed: 08/17/23 Dental Screening Dental Screen Date: 08/17/23 Did you have a dental visit in the last 12 months?: Yes Did you have a dental problem in the last 6 months where you did not have access to dental care?: No Was dental information given to patient?: Patient has dentist HPI ? Sinus Infection HPI Details 32-year-old overweight male with a histo ry of asthma generalized anxiety disorder GERD coming in for an acute problem. Urgent Center visit August 14 for cough and sinus congestion treated as an upper respiratory infection with steroids and Tessalon Perles patient comes in through Telehealth for continuous congestion. [facility] Family History (Updated 08/17/23 @ 12:08 by Renee aLyne [facility]) Mother Prediabetes Afib Father No problems noted. Sister No problems noted. Sister No problems noted. Sister No problems noted. Son No problems noted. Daughter No problems noted. Maternal Uncle Myocardial infarct Maternal Aunt Myocardial infarct Social History Housing: Apartment Alcohol intake: never Patient Tobacco Use Status: Current everyday Tobacco user Tobacco use type: Cigarette Cigarettes Per Day: 3 (pt states 3-5) e-Cigarette/Vaping Use: Never Used Second Hand Smoke Exposure: Yes service: No Current occupational status: unemployed Current occupational exposures/hazards: No Cognitive needs: No Hearing needs: No Vision needs: No Questionnaire Thrive Questionnaire Date Thrive assessed: 07/21/22 MAMADOU-7 AMB Questionnaire MAMDAOU-7 Date MAMADOU - 7 assessed: 07/21/22 Source: Developed by Drs. Jay Douglas, Traci Adkins, Aubrey Reid and colleagues, with an educational casey from [employer]. Physical exam (Primary Care) Tobacco/Smoking Status: Tobacco use Status Tobacco use date assessed 08/17/23 08/17/23 12:08 Patient Tobacco Use Status Current everyday Tobacco 08/17/23 12:04 Tobacco use type Cigarette 08/17/23 12:08 e-Cigarette/Vaping Use Never Used 08/17/23 12:04 Thrive Assessment: Date of Thrive Assessment Date Thrive assessed 07/21/22 08/17/23 12:04 Telehealth Telehealth Location of provider rendering services: practice address Location of patient: address on file Patient Identification confirmed using: Name, : Yes Telehealth method: voice only Patient verbally consented to treatment: Yes Patient verbally consented to billing insurance company: Yes Patient informed of any privacy concerns related to visit: Yes Minutes spent on Phone/Video with Pt.: 15 Assessment and Plan Assessment & Plan (1) Upper respiratory infection: Code(s): J06.9 - Acute upper respiratory infection, unspecified Qualifiers: URI type: unspecified viral URI Qualified Code(s): J06.9 - Acute upper respiratory infection, unspecified Plan: Increase oral fluids antibiotics sent. Partner had Zithromax with no relief and will send in for doxycycline for the patient. Medications: New doxycycline hyclate 100 mg PO BID 14 caps 0RF J06.9 - Acute upper respiratory infection, unspecified Discontinued prednisone Discontinued Reason: Patient Completed Course 40 mg (2 x 20 mg) PO DAILY 8 tabs 0RF 4 days Coding Level of Care Code Tele Est Pt Level 3 (28533) Diagnoses Viral upper respiratory tract infection J06.9 URI type: unspecified viral URI
== END 2023-08-17 15:49 | disposition home or self-care (01) ==
LOC: HO.HMGH 12:03
PROVIDERS: PCP Internal Medicine; Visit Provider Internal Medicine
DX: J06.9 Acute upper respiratory infection, unspecified (principal)
CPT/HCPCS: 99213

== ENCOUNTER 2023-09-14 16:22 | Outpatient (AMB) | payer OTHER, SELFPAY ==
[2023-09-14 16:23] VITALS: BP 118/82; PULSE 64; O2SAT 97; BMI 28.6
--- NOTE | 2023-09-14 16:23 | A.OFFPC_ITS ---
Vital Signs 3 09/14/23 16:23 Height 6 ft 1 in Weight 217 lb 0.8 oz BMI 28.6 BP 118/82 Blood Pressure Location Lt brachial Position Sitting Pulse 64 Pulse Source Pulse Oximeter Pulse Oximetry (%) 97 Oxygen Delivery Method Room Air Intake Visit Reasons: Mole Cloud Architect Required: No Allergies amoxicillin [AMOXICILLIN] Allergy (Unknown, Verified 09/14/23 16:23) UNKNOWN Tobacco use date assessed: 09/14/23 HPI Mole 2 HPI0 Details 32-year-old overweight male with a histo ry of asthma anxiety and depression GERD coming in for an acute problem. Last seen in July 2023. Patient is concerned about rash.nevi on thw L side neck area and noted to get bigger prompting concern [facility] Family History (Updated 08/17/23 @ 12:08 by Renee Layne [facility]) Mother Prediabetes Afib Father No problems noted. Sister No problems noted. Sister No problems noted. Sister No problems noted. Son No problems noted. Daughter No problems noted. Maternal Uncle Myocardial infarct Maternal Aunt Myocardial infarct Social History Housing: Apartment Alcohol intake: never Patient Tobacco Use Status: Current everyday Tobacco user Tobacco use type: Cigarette Cigarettes Per Day: 3 (pt states 3-5) e-Cigarette/Vaping Use: Never Used Second Hand Smoke Exposure: Yes service: No Current occupational status: unemployed Current occupational exposures/hazards: No Cognitive needs: No Hearing needs: No Vision needs: No Questionnaire Thrive Questionnaire Date Thrive assessed: 07/21/22 AUDIT C Alcohol Use Questionnaire (AUDIT-C) 1. How often do you have a drink containing alcohol?: Never 2. How many drinks containing alcohol do you have on a typical day when you are drinking?: 1 or 2 (0) 3. How often do you have six or more drinks on one occasion?: Never Total Score: 0 Score Reviewed/Action Taken: No MAMADOU-7 AMB Questionnaire MAMADOU-7 Date MAMADOU - 7 assessed: 07/21/22 Source: Developed by Drs. Jay Douglas, Traci Adkins, Aubrey Reid and colleagues, with an educational casey from [employer]. Physical exam (Primary Care) Vital Signs: Last Vital Signs Pulse 64 09/14/23 16:23 BP 118/82 09/14/23 16:23 Pulse Ox 97 09/14/23 16:23 Oxygen Delivery Method Room Air 09/14/23 16:23 BMI result Body Mass Index 28.6 Tobacco/Smoking Status: Tobacco use Status Tobacco use date assessed 09/14/23 09/14/23 16:24 Patient Tobacco Use Status Current everyday Tobacco 09/14/23 16:24 Tobacco use type Cigarette 09/14/23 16:24 e-Cigarette/Vaping Use Never Used 09/14/23 16:24 Thrive Assessment: Date of Thrive Assessment Date Thrive assessed 07/21/22 09/14/23 16:24 [facility] Face images: 2 1. one Cm brownish pigmented nevi no scaliness Assessment and Plan Assessment & Plan (1) Enlarged nevus: Comment: Left submental area Code(s): D22.9 - Melanocytic nevi, unspecified Plan: Pigmented nevi on the left submental area referral to dermatology Orders: Referrals 2 Dermatology Referral D22.9 - Melanocytic nevi, unspecified Coding Level of Care Code Est Pt Level 3 (19045) Diagnoses Enlarged nevus D22.9
== END 2023-09-14 17:05 | disposition home or self-care (01) ==
PROVIDERS: PCP Internal Medicine; Visit Provider Internal Medicine
DX: D22.9 Melanocytic nevi, unspecified (principal)
CPT/HCPCS: 99213

== ENCOUNTER → 2024-01-13 06:37 | Outpatient (BNV) | payer OTHER, SELFPAY | PROVIDERS: Emergency Provider Emergency Medicine; PCP Internal Medicine; Visit Provider Internal Medicine | DX: R07.9 Chest pain, unspecified (principal) | CPT/HCPCS: 93010 ==

== ENCOUNTER 2024-01-13 06:38 | Emergency (ER) | payer OTHER, SELFPAY ==
--- NOTE | 2024-01-13 | ECG_ITS ---
Test Reason : CHEST PAIN Blood Pressure : / mmHG Vent. Rate : 057 BPM Atrial Rate : 057 BPM P-R Int : 146 ms QRS Dur : 096 ms QT Int : 410 ms P-R-T Axes : 010 009 030 degrees QTc Int : 399 ms Sinus bradycardia Otherwise normal ECG When compared with ECG of 29-NOV-2022 12:56, No significant change was found Referred By: Generic ED Physician Electronically Signed By:SIDDHARTHA GHOSH
--- NOTE | ~2024-01-13 | XR_ITS ---
EXAMINATION: XR CHEST CLINICAL INFORMATION: Chest pain COMPARISON: 11/29/2022 TECHNIQUE: 2 views of the chest were obtained. FINDINGS: No significant abnormality is noted involving the heart, lungs, mediastinum, bony thorax or soft tissues. XR/XR chest 2V IMPRESSION: Unremarkable examination.
--- NOTE | 2024-01-13 06:46 | ED_ITS ---
HPI - Chest Pain General Chief Complaint: Chest Pain Stated Complaint: Chest pain Time Seen by Provider: 01/13/24 06:42 Source: patient Mode of arrival: ambulatory Limitations: no limitations History of Present Illness ED Provider: Tressa Eagle PA-C HPI narrative: 33-year-old male with history of depression, anxiety, GERD, asthma who presents to the ER for evaluation of sharp, constant, nonradiating left sided chest pain that started yesterday while he was driving. He states it started mild and has progressed to a 7/10. He had difficulty sleeping due to the pain. He denies any associated shortness of breath. He reports chronic nausea every day and usually vomits every morning. This is unchanged. He is an active smoker. He denies any history of chest pain in the past. No significant family history for chest pain. Denies any injury. MD complaint: chest pain Pertinent past history: asthma Onset (ago): day(s) (1) Timing of current episode: constant Prior episodes: No Onset: during rest Pain location: left chest Pain radiation: none Severity: moderate Pain scale (0-10): 7 Quality: sharp Relieving factors: nothing Exacerbating factors: nothing Associated symptoms: nausea Treatment prior to arrival: none Risk Factors Coronary artery disease risk factors: smoking history Thoracic aortic dissection risk factors: none Related Data Previous Rx's ?Medication ?Instructions ?Recorded benzonatate 200 mg capsule 200 mg PO BID-TID PRN cough #14 08/14/23 caps doxycycline hyclate 100 mg capsule 100 mg PO BID #14 caps 08/17/23 Allergies Allergy/AdvReac Type Severity Reaction Status Date / Time amoxicillin [AMOXICILLIN] Allergy Unknown UNKNOWN Verified 01/13/24 06:50 Review of Systems 2 Review of Systems: Yes all other systems are reviewed and are negative [facility] Family History Family History (Updated 08/17/23 @ 12:08 by [facility]) Mother Prediabetes Afib Father No problems noted. Sister No problems noted. Sister No problems noted. Sister No problems noted. Son No problems noted. Daughter No problems noted. Maternal Uncle Myocardial infarct Maternal Aunt Myocardial infarct Social History Social History Housing: Apartment Alcohol intake: never Patient Tobacco Use Status: Current everyday Tobacco user Tobacco use type: Cigarette Cigarettes Per Day: 3 (pt states 3-5) Smoked in Last 30 Days: Yes e-Cigarette/Vaping Use: Never Used Second Hand Smoke Exposure: Yes Advance Directives: No Advance Directives Information Provided: No Do you have a plan to hurt others: No Plan service: No Current occupational status: unemployed Current occupational exposures/hazards: No Cognitive needs: No Hearing needs: No Vision needs: No Physical Exam 2 Vital Signs: Vital Signs: Last Vital Signs Temp 98.3 F 01/13/24 09:06 Pulse 47 L 01/13/24 09:06 Resp 16 01/13/24 09:06 BP 139/92 H 01/13/24 09:06 Pulse Ox 98 01/13/24 09:06 O2 Del Method Room Air 01/13/24 07:49 BMI result Body Mass Index 29.3 Appearance: Alert. Oriented X3. No acute distress. Head: normocephalic, atraumatic. Eyes: Pupils equal, round and reactive to light. ENT: Pharynx normal. No tonsillar swelling or exudate. Neck: Normal inspection. Neck supple. CVS: Normal heart rate and rhythm. Pulses normal. Nontender chest wall Respiratory: No respiratory distress. Breath sounds normal. Abdomen: Soft and nontender. +BS x4 Skin: Skin warm and dry. Normal skin color. Normal skin turgor. No rashes. Extremities: No lower extremity edema. No joint swelling. Negative Homans sign Neuro/psych: Oriented X 3. No motor deficit. No sensory deficit. CN II-XII intact. Normal speech and cognition. Procedures Smoking Cessation Time Spent Discussing Smoking Cessation w/Patient (min): 4 Patient Acknowledges Need for Cessation: Yes Additional Comments: Discussed patch, gum, patient will do his best to cut back verses stop cold turkey, he does not want medication assisted treatment at this time Medical Decision Making Medical Decision Making MDM Narrative: 33-year-old male with history of depression, anxiety, asthma, currently on no medications, active smoker presents to the ER for evaluation of sharp, constant, nonradiating chest pain on the left side that started yesterday. On arrival to the ER patient is hemodynamically stable, heart rates 50s to 60s. EKG without any ischemic changes. His blood pressure is slightly elevated, denies a history of elevated blood pressure at home. His troponin is less than 2.7. No need to repeat given his pain started yesterday. There is low clinical suspicion for any dissection, PE or ACS at this time. He admits to anxiety, this could be anxiety related. He does not want any medication, including Motrin or Tylenol. We discussed the importance of smoking cessation. He is given return precautions and is stable for discharge home with outpatient follow-up. Differential Diagnosis Differential Diagnoses: The differential diagnosis associated with the presentation includes Anxiety, ACS, PE, costochondritis, pneumonia, pneumothorax, pericarditis, myocarditis Admission/Observation Consideration of admission/observation: Escalation of care including admission/observation considered Lab Data MDM Lab Attestation statement: I reviewed the patient's lab results. Negative troponin, no anemia, no major metabolic derangement 01/13/24 06:58 01/13/24 06:58 Labs: Lab Results 01/13/24 Range/Units 06:58 WBC 7.9 (4.8-10.8) X10*3/uL RBC 5.14 (4.60-5.80) X10*6/uL Hgb 16.1 (14.0-18.0) g/dl Hct 46.9 (42.0-52.0) % MCV 91.2 (80.0-98.0) fL MCH 31.3 (27.0-33.0) pg MCHC 34.3 (31.0-36.0) g/dl RDW 13.1 (11.0-16.0) % Plt Count 190 (160-400) X10*3/uL MPV 9.2 L (9.4-12.4) fL Immature Gran % (Auto) 0.5 H (0.0-0.4) % Neut % (Auto) 45.6 (45-73) % Lymph % (Auto) 40.0 (20-40) % Rock % (Auto) 11.3 H (2-11) % Eos % (Auto) 2.0 (0-4) % Baso % (Auto) 0.6 (0-2) % Lymph # (Auto) 3.2 (1.2-4.9) X10*3/uL Rock # (Auto) 0.9 (0.1-1.2) X10*3/uL Eos # (Auto) 0.2 (0.0-0.4) X10*3/uL Baso # (Auto) 0.1 (0.0-0.2) X10*3/uL Abs Immat Gran (auto) 0.04 H (0.00-0.03) X10*3/uL Absolute Neuts (auto) 3.6 (2.0-8.3) x10*3/uL Absolute Nucleated RBC 0.000 (0.0-0.012) X10*3/uL Nucleated RBC % (auto) 0.0 (0.0-0.2) /100WBC Sodium 141 (135-145) mmol/L Potassium 4.2 (3.3-5.1) mmol/L Chloride 112 H (96-108) mmol/L Carbon Dioxide 22 (22-29) mmol/L Anion Gap 11 L (12-20) BUN 13 (9-16) mg/dL Creatinine 1.02 (0.5-1.4) mg/dL Estim Creat Clear Calc 128.5 Estimated GFR > 60 Random Glucose 107 (60-115) mg/dL Calcium 9.0 (8.4-10.2) mg/dL Magnesium 1.9 (1.6-2.6) mg/dL Total Bilirubin 0.2 (0.0-1.0) mg/dL Direct Bilirubin < 0.2 (0.0-0.5) mg/dL AST 19 (5-37) U/L ALT 47 H (0-40) U/L Alkaline Phosphatase 71 (39-117) U/L Troponin I High Sens < 2.7 (<3.5-35.0) ng/L Total Protein 6.7 (6.5-8.0) g/dL Albumin 4.2 (3.5-5.0) g/dL Independent Interpretation I performed an independent interpretation of an: EKG and Plain X-Ray Interpretation: EKG with sinus bradycardia, ventricular rate 57 beats per minute, normal NC interval, normal QRS, normal QTC, no ST segment elevations or depressions Chest x-ray with no focal infiltrate, effusion, pneumothorax, clear lungs. Agree with radiology read Radiology Impression Discussion of test interpretation with radiology: I have reviewed the radiologist's reading. Radiologist Impression: EXAMINATION: XR CHEST CLINICAL INFORMATION: Chest pain COMPARISON: 11/29/2022 TECHNIQUE: 2 views of the chest were obtained. FINDINGS: No significant abnormality is noted involving the heart, lungs, mediastinum, bony thorax or soft tissues. XR/XR chest 2V IMPRESSION: Unremarkable examination. Independent Historian Clinical information obtained from an independent historian. History obtained from or confirmed by: Spouse External Record Review External record reviewed: Outpatient record and Prior outpatient labs Prescription Management I considered prescription management with: Pain Medication Chronic Conditions Patient?s care impacted by: Other (smoker) Scores Heart Score History: -0- slightly suspicious ECG: -0- normal Age: -0- < or = 45 Risk factory: -1- 1 or 2 risk factors Troponin: -0- < or = normal limit Score: 1 Risk: 1.7% Discharge Plan Discharge Clinical Impression: Atypical chest pain Patient Disposition: Home, Self-Care Instructions: Noncardiac Chest Pain (ED) Additional Instructions: Your lab workup, EKG, chest x-ray were all reassuring today. Your chest pain is not likely cardiac in nature. Recommend rest, no strenuous activity. Do your best to stop smoking Recommend [id number] Motrin and Tylenol as needed for pain. Follow-up with your doctor. If you develop new or worsening symptoms call 911 or come back to the ER for further evaluation. Prescriptions: No Action doxycycline hyclate 100 mg capsule 100 mg PO BID Qty: 14 0RF benzonatate 200 mg capsule 200 mg PO BID-TID PRN (Reason: cough) Qty: 14 0RF Stand Alone Forms: Work/School Release Interventions: ED Discharge Assessment Last Done: 01/13/24 09:06 Discharge Date/Time: 01/13/24 09:09 Print Language: Occitan
[2024-01-13 06:47] VITALS: BP 147/86; PULSE 59; RESP 16; TEMP 36.6; O2SAT 98; BMI 29.3
[2024-01-13 06:53] VITALS: BP 147/86; PULSE 65; PULSE 70; RESP 16; TEMP 36.8; O2SAT 99
[2024-01-13 07:02] LABS: MANUAL DIFF FLAG NO
[2024-01-13 07:05] LABS: Basophils Absolute Auto 0.1 X10*3/uL (0.0-0.2); Basophils Percent Auto 0.6 % (0-2); Eosinophils Absolute Auto 0.2 X10*3/uL (0.0-0.4); Hematocrit 46.9 % (42.0-52.0); Hemoglobin 16.1 g/dl (14.0-18.0); Imm Gran Abs Auto 0.04 X10*3/uL (0.00-0.03); Imm Gran Pct Auto 0.5 % (0.0-0.4); Lymphocytes Absolute Auto 3.2 X10*3/uL (1.2-4.9); Mean Corpuscular HGB Conc 34.3 g/dl (31.0-36.0); Mean Corpuscular Hemoglobin 31.3 pg (27.0-33.0); Mean Corpuscular Volume 91.2 fL (80.0-98.0); Mean Platelet Volume 9.2 fL (9.4-12.4); Monocytes Absolute Auto 0.9 X10*3/uL (0.1-1.2); Monocytes Percent Auto 11.3 % (2-11); Neutrophils Absolute Auto 3.6 x10*3/uL (2.0-8.3); Neutrophils Percent Auto 45.6 % (45-73); Platelet Count 190 X10*3/uL (160-400); Red Blood Count 5.14 X10*6/uL (4.60-5.80); Red Cell Distribution Width 13.1 % (11.0-16.0); White Blood Count 7.9 X10*3/uL (4.8-10.8)
[2024-01-13 07:17] LABS: Alanine Aminotransferase 47 U/L (0-40); Albumin Level 4.2 g/dL (3.5-5.0); Alkaline Phosphatase 71 U/L (39-117); Anion Gap 11 (12-20); Aspartate Amino Transferase 19 U/L (5-37); Bilirubin Direct < 0.2 mg/dL (0.0-0.5); Bilirubin Total 0.2 mg/dL (0.0-1.0); Blood Urea Nitrogen 13 mg/dL (9-16); Carbon Dioxide 22 mmol/L (22-29); Chloride 112 mmol/L (96-108); Creatinine Clr Calc Pharmacy 128.5; Estimated Glomerular Filt Rate > 60; Glucose Random 107 mg/dL (60-115); Magnesium 1.9 mg/dL (1.6-2.6); Potassium 4.2 mmol/L (3.3-5.1); Sodium 141 mmol/L (135-145); Total Protein 6.7 g/dL (6.5-8.0)
[2024-01-13 07:24] LABS: Troponin-I High Sensitivity < 2.7 ng/L (<3.5-35.0)
[2024-01-13 07:49] VITALS: BP 139/92; PULSE 47; RESP 16; O2SAT 98
--- NOTE | 2024-01-13 07:54 | PC.NURSE ---
VS updated, awaiting Xrays at this time. Pt made aware of negative lab results, continues to endorse a small amount of chest discomfort.
[2024-01-13 09:06] VITALS: BP 139/92; PULSE 47; RESP 16; TEMP 36.8; O2SAT 98
== END 2024-01-13 09:09 | disposition home or self-care (01) ==
PROVIDERS: Physician Assistant; Emergency Provider Emergency Medicine; PCP Internal Medicine
DX: R07.89 Other chest pain (principal); R11.0 Nausea; Z79.899 Other long term (current) drug therapy
CPT/HCPCS: 36415; 71046; 80048; 80076; 83735; 84484; 85025; 93005; 99283; 99285

== ENCOUNTER 2024-07-18 11:24 | Outpatient (AMB) | payer OTHER, SELFPAY ==
--- NOTE | 2024-07-18 11:28 | MHC.PC.OV ---
Vital Signs 07/18/24 11:29 Height 6 ft 1 in Weight 217 lb BMI 28.6 BP 130/76 Blood Pressure Location Lt brachial Position Sitting Pulse 75 Pulse Source Pulse Oximeter Pulse Oximetry (%) 96 Oxygen Delivery Method Room Air Intake Visit Reasons: CPE Allergies amoxicillin [AMOXICILLIN] Allergy (Unknown, Verified 07/18/24 11:29) UNKNOWN Tobacco use date assessed: 07/18/24 Dental Screening Dental Screen Date: 07/18/24 Did you have a dental visit in the last 12 months?: Yes Did you have a dental problem in the last 6 months where you did not have access to dental care?: No Was dental information given to patient?: Patient has dentist HPI CPE HPI Details The patient is a 33-year-old male presenting with ongoing and episodic chest pain that sometimes occurs after smoking and is associated with coughing. The patient reports that these symptoms have not been consistent and vary depending on smoking habits. He visited the emergency room in December for chest pain but was assured it was not cardiac-related. Additionally, he experiences frequent smoker's cough, vomiting occasionally after brushing his teeth, and dizziness described as biweekly episodes. The vomiting reduced after switching to a smaller toothbrush. Occasionally, he feels shortness of breath depending on smoking quantities. The patient has a six-year history of shoulder pain with referral into the neck and associated headaches. This pain commenced after a fall in 2017, with past x-rays done then showing no fractures. Further, he reports bouts of nausea in the morning, specifying biweekly heartburn episodes, noting that exacerbating factors include lying down soon after eating. 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 Prior liver function tests in December indicated slight elevation, but the patient was not aware of this earlier. Furthermore, the patient mentions longstanding anxiety and depression worsening in family-stress scenarios, with past side effects from psychiatric medications deterring previous compliance. - Discussed adjustment of lifestyle behaviors to mitigate smoking-induced health risks, especially lung diseases. - Advice on smoking cessation including potential cessation aids and future screening for lung cancer after chronic smoking. - Discussed lifestyle modifications for heartburn prevention including dietary adjustments, posture post-meals, and head elevation during sleep. - Recommended avoiding alcohol and advised against second-hand inhalers due to insurance and brand differences. - Reassessment and monitoring of liver function scheduled through repeat blood tests. - Advised exploration of allergy medications to aid with persistent ear congestion. - Offered influenza vaccination considering current flu season context; discussed RSV and norovirus precautions. - Smokes 2-3 cigarettes per day and uses marijuana. - Reports adjusting lifestyle by changing toothbrush size to mitigate morning nausea. - Reports absence of alcohol use. - Lives with family and reports heightened anxiety due to familial stressors. - Previous adverse reaction to psychiatric medication impacting ongoing mental health management. - Respiratory: Reports sometimes waking up short of breath, particularly correlated with smoking activity. - Gastrointestinal: Reports biweekly heartburn, nausea in the morning. - ENT: Reports blocked feeling and fluid in the ears, mainly left; occasional difficulty swallowing and hearing. - Neurological: Reports headaches and migraines related to shoulder pain radiating from a past injury. - Musculoskeletal: Reports sustained shoulder and neck pain worsening with specific movements. FORMERLY [facility], [facility]–1983 Medical History (Updated 07/18/24 @ 12:10 by Jo Ann Segura MD) Myoclonic jerking Chest pain Upper respiratory infection Skin lesion Depression Anxiety Family History (Updated 08/17/23 @ 12:08 by Renee Layne [facility]) Mother Prediabetes Afib Father No problems noted. Sister No problems noted. Sister No problems noted. Sister No problems noted. Son No problems noted. Daughter No problems noted. Maternal Uncle Myocardial infarct Maternal Aunt Myocardial infarct Social History (Updated 07/18/24 @ 11:53 by Jo Ann Segura MD) Housing: Apartment Alcohol intake: never Patient Tobacco Use Status: Current everyday Tobacco user Tobacco use type: Cigarette Cigarettes Per Day: 3 (pt states 3-5) Years Smoked: smoke e-Cigarette/Vaping Use: Never Used Second Hand Smoke Exposure: Yes service: No Current occupational status: unemployed Current occupational exposures/hazards: No Cognitive needs: No Hearing needs: No Vision needs: No Questionnaire PHQ-9 Over the last 2 weeks, how often have you been bothered by any of the following problems? 1. Little interest or pleasure in doing things: not at all 2. Feeling down, depressed, or hopeless: nearly every day 3. Trouble falling or staying asleep, or sleeping too much: nearly every day 4. Feeling tired or having little energy: nearly every day 5. Poor appetite or overeating: nearly every day 6. Feeling bad about yourself - or that you are a failure or have let yourself or your family down: nearly every day 7. Trouble concentrating on things, such as reading the newspaper or watching television: more than half the days 8. Moving or speaking so slowly that other people could have noticed. Or the opposite - being so fidgety or restless that you have been moving around a lot more than usual: nearly every day 9. Thoughts that you would be better off or of hurting yourself in some way: nearly every day Total score: 23 Source: Developed by Drs. Jay Douglas, Traci Adkins, Aubrey Reid and colleagues, with an educational casey from [employer]. Thrive Questionnaire Date Thrive assessed: 07/18/24 I am a: Patient What is your living situation today?: I have a steady place to live Within the past 12 months, did the food you bought not last and you didn't have the money to get more?: Sometimes True Within the past 12 months, did you worry whether your food would run out before you got money to buy more?: Sometimes True Do you have trouble paying for medicines?: No Do you have trouble getting transportation to medical appointments?: No Do you have trouble paying your heating and electricity bill?: Yes Do you have trouble taking care of your child, family member or friend?: No Do you have trouble with day-to-day activities such as bathing, preparing meals, shopping, managing finances, etc.?: Yes Are you currently unemployed and looking for a job?: No Are you interested in more education?: No Please select the resources that you would like help with: Food and Utilities Currently or been in a relationship where the following occur: No concerns reported THRIVE Score: 3 AUDIT C Alcohol Use Questionnaire (AUDIT-C) 1. How often do you have a drink containing alcohol?: Never Total Score: 0 MAMADOU-7 AMB Questionnaire MAMADOU-7 Date MAMADOU - 7 assessed: 07/18/24 Feeling nervous, anxious, or on edge: 3 = Nearly every day Not being able to stop or control worryin = Nearly every day Worrying too much about different things: 3 = Nearly every day Trouble relaxin = Nearly every day Being so restless that it is hard to sit still: 3 = Nearly every day Becoming easily annoyed or irritable: 3 = Nearly every day Feeling afraid as if something awful might happen: 3 = Nearly every day Total MAMADOU-7 score (0-4 normal; 5-9 mild; 10-14 moderate; 15-21 severe): 21 Source: Developed by Drs. Jay Douglas, Traci Adkins, Aubrey Reid and colleagues, with an educational casey from [employer]. Review of Systems Const Denies poor appetite and Denies weakness Eyes Denies no additional complaints ENT Reports Normal hearing present, Denies dizziness, Denies nasal congestion, Denies tinnitus and Denies sore throat Card Denies chest pain, Denies syncope, Denies rapid heart rate and Denies dyspnea Resp Denies cough and Denies dyspnea GI Denies change in stool character, Reports constipation, Denies diarrhea, Denies nausea and Denies vomiting Denies dysuria and Denies urinary frequency Neuro Reports Normal hearing present, Denies confusion, Denies dizziness, Denies syncope and Denies weakness Psych Denies confusion Physical exam (Primary Care) Vital Signs: Last Vital Signs Pulse 75 07/18/24 11:29 BP 130/76 07/18/24 11:29 Pulse Ox 96 07/18/24 11:29 Oxygen Delivery Method Room Air 07/18/24 11:29 BMI result Body Mass Index 28.6 Tobacco/Smoking Status: Tobacco use Status Tobacco use date assessed 07/18/24 07/18/24 11:35 Patient Tobacco Use Status Current everyday Tobacco 07/18/24 11:53 Tobacco use type Cigarette 07/18/24 11:53 e-Cigarette/Vaping Use Never Used 07/18/24 11:53 PHQ-9: PHQ-9 Score PHQ-9: Total score 23 07/18/24 11:46 Thrive Assessment: Date of Thrive Assessment Date Thrive assessed 07/18/24 07/18/24 11:35 Currently or been in a relationship where the following occur: No concerns reported Const General: No confusion Orientation/consciousness: No confusion HENMT Head: Yes normocephalic Ears: external ears normal and TM's normal bilaterally Face and sinus: Yes normal facial exam Mouth: moist mucous membranes Throat: Yes tonsils normal Eyes Conjunctivae: conjunctivae normal Pupils: Equal, round and reactive pupils present and Pupil accommodation reflex normal Direct Ophthalmoscopy: normal light reflex Neck Neck: No lymphadenopathy Thyroid: Thyroid normal Chest Chest palpation & inspection: normal inspection of the chest Resp Effort & Inspection: normal respiratory effort and no audible wheezes Auscultation: clear to auscultation bilaterally, no crackles, no wheezes and lung sounds not diminished Cardio Rate: regular rate Rhythm: regular rhythm Peripheral pulses: radial pulses present and dorsalis pedis present GI Palpation (GI): no masses Auscultation: normal bowel sounds and normoactive bowel sounds Rectal Exam - Male: Yes deferred Skin General skin exam: no rashes or lesions noted Rashes: no rashes Neuro General: No confusion Cranial nerves: Yes Equal, round and reactive pupils present and Yes Normal hearing present Cognition (Neuro): normal cognition Gait exam (Neuro): Normal gait present Motor exam (neuro): 5/5 motor strength present throughout Deep tendon reflexes (DTR's): Right brachioradialis reflex intensity grade: 2+, Left brachioradialis reflex intensity grade: 2+, Right patellar reflex intensity grade: 2+ and Left patellar reflex intensity grade: 2+ Extrem General: No edema Coding Level of Care Code Est Pt Prev Care [id number]([id number]) Diagnoses Annual physical exam Z00.00 Asthma J45.909 Gastroesophageal reflux disease without esophagitis K21.9 Esophagitis presence: without esophagitis Shoulder pain, right M25.511 Oropharyngeal dysphagia R13.12 Dysphagia type: oropharyngeal phase Hearing deficit H91.90 LFT elevation R79.89 Generalized anxiety disorder F41.1 Assessment & Plan Assessment & Plan (1) Annual physical exam: Code(s): Z00.00 - Encounter for general adult medical examination without abnormal findings Category: Medical (2) Asthma: Code(s): J45.909 - Unspecified asthma, uncomplicated Category: Medical (3) GERD (gastroesophageal reflux disease): Code(s): K21.9 - Gastro-esophageal reflux disease without esophagitis Category: Medical Qualifiers: Esophagitis presence: without esophagitis Qualified Code(s): K21.9 - Gastro-esophageal reflux disease without esophagitis (4) Shoulder pain, right: Comment: 2018 AC seperation Code(s): M25.511 - Pain in right shoulder Category: Medical Plan: tender on elevation to 100 degrees (5) Difficulty swallowing: Code(s): R13.10 - Dysphagia, unspecified Category: Medical Qualifiers: Dysphagia type: oropharyngeal phase Qualified Code(s): R13.12 - Dysphagia, oropharyngeal phase (6) Dysphagia: Code(s): R13.10 - Dysphagia, unspecified Category: Medical (7) Hearing deficit: Code(s): H91.90 - Unspecified hearing loss, unspecified ear Category: Medical (8) LFT elevation: Code(s): R79.89 - Other specified abnormal findings of blood chemistry Category: Medical (9) Generalized anxiety disorder: Code(s): F41.1 - Generalized anxiety disorder Category: Medical Plan - Labs: Elevated liver function tests from previous December blood work. - Order shoulder X-ray to reassess old injury, followed by orthopedic referral for persistent pain. - Prescribe albuterol inhaler for potential asthma symptoms for emergency use. - Conduct esophagogastroduodenoscopy EGD) to examine swallowing difficulties and assess for ulceration or heartburn causation. - Implement enhanced liver testing and ultrasound to evaluate underlying liver function abnormalities. - Prescribe cetirizine for allergy relief contributing to ear congestion. - Initiate Wellbutrin at 150 mg daily for anxiety and depression management. - Recommend lifestyle adjustments focusing on smoking cessation, heartburn prevention, and anxiety management. - Continue monitoring substance use and discuss potential cessation programs or support. During the consultation, we discussed the importance of addressing each interconnected health issue, particularly focusing on the patient's smoking habits and potential long-term respiratory implications. I emphasized modifying lifestyle changes, such as quitting smoking and incorporating dietary modifications for heartburn mitigation. We discussed the advantage of conducting specific diagnostic tests such as an EGD for swallowing issues, and liver ultrasound due to previous elevation on liver function to explore all possibilities thoroughly. The patient consented to start on Wellbutrin, recognizing its role in both smoking cessation aid and anxiety management. We also addressed potential barriers in effecting behavioral changes and agreed to explore further counseling if necessary. Future follow-ups are critical to assess response to these interventions and to optimize care further. - Stop smoking or reduce cigarette and marijuana use. Consider cessation programs. - Avoid lying down within four hours post-eating to reduce heartburn risk. - Elevate the head of the bed to prevent nighttime reflux. - Schedule and complete prescribed diagnostic tests. - Use prescribed albuterol inhaler only when necessary and avoid using other people's medications. - Start the prescribed Wellbutrin and report back any side effects. - Use cetirizine as directed and report on its efficacy. - Contact the office with any new or worsening symptoms, particularly chest pain that changes in nature or new unexplained shortness of breath. - Return for a follow-up in three months to review progress with new management plans or any developing issues. Orders: Orders Hepatitis B,C Profile Today R79.89 - Other specified abnormal findings of blood chemistry Thyroid Stimulating Hormone Today R79.89 - Other specified abnormal findings of blood chemistry Lipid Panel Today E78.00 - Pure hypercholesterolemia, unspecified, R79.89 - Other specified abnormal findings of blood chemistry Vitamin B12 and Folate Today R79.89 - Other specified abnormal findings of blood chemistry Ferritin Today R79.89 - Other specified abnormal findings of blood chemistry US abdomen complete Today R79.89 - Other specified abnormal findings of blood chemistry Hemoglobin A1c Today F41.1 - Generalized anxiety disorder XR shoulder RT min 2V Today M25.511 - Pain in right shoulder FL barium swallow Today R13.10 - Dysphagia, unspecified FL upper GI series Today R13.10 - Dysphagia, unspecified Complete Blood Count Auto Diff Today R79.89 - Other specified abnormal findings of blood chemistry Comprehensive Met. Panel Today R79.89 - Other specified abnormal findings of blood chemistry Free T4 (Free Thyroxine) Today R79.89 - Other specified abnormal findings of blood chemistry Referrals Orthopedics Referral M25.511 - Pain in right shoulder Medications: New albuterol sulfate 90 mcg/actuation (ProAir RespiClick) 2 inhalations inhalation Q6H PRN 1 ea 0RF shortness of breath or wheezing J45.909 - Unspecified asthma, uncomplicated bupropion HCl XL (Wellbutrin XL) 150 mg PO QAM 30 tabs 2RF F41.1 - Generalized anxiety disorder
[2024-07-18 11:29] VITALS: BP 130/76; PULSE 75; O2SAT 96; BMI 28.6
== END 2024-07-18 12:18 | disposition home or self-care (01) ==
PROVIDERS: PCP Internal Medicine; Visit Provider Internal Medicine
DX: Z00.00 Encounter for general adult medical examination without abnormal findings (principal); J45.909 Unspecified asthma, uncomplicated; K21.9 Gastro-esophageal reflux disease without esophagitis; M25.511 Pain in right shoulder; R13.12 Dysphagia, oropharyngeal phase; H91.90 Unspecified hearing loss, unspecified ear; R79.89 Other specified abnormal findings of blood chemistry; F41.1 Generalized anxiety disorder; R13.10 Dysphagia, unspecified

== ENCOUNTER → 2024-07-18 11:24 | Outpatient (BNVA) | payer OTHER, SELFPAY | PROVIDERS: PCP Internal Medicine; Visit Provider Internal Medicine | DX: Z00.00 Encounter for general adult medical examination without abnormal findings (principal); J45.909 Unspecified asthma, uncomplicated; K21.9 Gastro-esophageal reflux disease without esophagitis; M25.511 Pain in right shoulder; R13.12 Dysphagia, oropharyngeal phase; H91.90 Unspecified hearing loss, unspecified ear; R79.89 Other specified abnormal findings of blood chemistry; F41.1 Generalized anxiety disorder | CPT/HCPCS: 99395 ==

== ENCOUNTER 2024-08-08 08:56 | Outpatient (REF) | payer OTHER, SELFPAY ==
--- NOTE | ~2024-08-08 | US_ITS ---
CLINICAL HISTORY: R79.89 - Other specified abnormal findings of blood chemistry US abdomen complete Comparison: None Findings: The pancreas was not well visualized secondary to overlying bowel gas. The aorta and inferior vena cava are normal caliber. Liver length estimated at 15.9 cm. Limited evaluation of liver parenchyma secondary to poor penetration by the ultrasound beam. Echogenic liver parenchyma. There is no intrahepatic bile duct dilatation. The common duct is 4 mm in diameter. The gallbladder is normal. There is no sonographic Moul[place] sign. The main portal vein is antegrade. Right kidney length 10.2 cm. Left kidney length 11.1 cm. Possible horseshoe kidney. No hydronephrosis. The spleen is normal. No ascites. IMPRESSION: 1. Echogenic liver likely secondary to fatty infiltration. 2. No cholelithiasis or biliary obstruction. 3. Possible horseshoe kidney. This document has been electronically signed by: Linda Tate MD on 08/08/2024 16:12:10
[2024-08-08 09:54] LABS: MANUAL DIFF FLAG NO
[2024-08-08 10:00] LABS: Basophils Percent Auto 0.5 % (0-2); Eosinophils Absolute Auto 0.1 X10*3/uL (0.0-0.4); Eosinophils Percent Auto 1.6 % (0-4); Hematocrit 47.4 % (42.0-52.0); Hemoglobin 16.1 g/dl (14.0-18.0); Imm Gran Abs Auto 0.04 X10*3/uL (0.00-0.03); Imm Gran Pct Auto 0.5 % (0.0-0.4); Lymphocytes Absolute Auto 2.9 X10*3/uL (1.2-4.9); Lymphocytes Percent Auto 38.2 % (20-40); Mean Corpuscular Hemoglobin 30.8 pg (27.0-33.0); Mean Corpuscular Volume 90.8 fL (80.0-98.0); Mean Platelet Volume 9.4 fL (9.4-12.4); Monocytes Absolute Auto 0.8 X10*3/uL (0.1-1.2); Monocytes Percent Auto 10.5 % (2-11); Neutrophils Absolute Auto 3.7 x10*3/uL (2.0-8.3); Neutrophils Percent Auto 48.7 % (45-73); Platelet Count 211 X10*3/uL (160-400); Red Blood Count 5.22 X10*6/uL (4.60-5.80); Red Cell Distribution Width 13.1 % (11.0-16.0); White Blood Count 7.5 X10*3/uL (4.8-10.8)
[2024-08-08 10:08] LABS: Estimated Average Glucose 108 mg/dL; Hemoglobin A1c % 5.4 % (<6.0); Total Hemoglobin (HGBA1C) 4126.8171 umol/L
[2024-08-08 10:51] LABS: Alanine Aminotransferase 52 U/L (0-40); Albumin Level 4.4 g/dL (3.5-5.0); Alkaline Phosphatase 61 U/L (39-117); Anion Gap 12 (12-20); Aspartate Amino Transferase 27 U/L (5-37); Bilirubin Total 0.3 mg/dL (0.0-1.0); Blood Urea Nitrogen 14 mg/dL (9-16); Calcium 8.9 mg/dL (8.4-10.2); Carbon Dioxide 25 mmol/L (22-29); Chloride 110 mmol/L (96-108); Cholesterol 206 mg/dL (<200); Estimated Glomerular Filt Rate > 60; Glucose Random 96 mg/dL (60-115); HDL Cholesterol 32 mg/dL (>40); LDL Cholesterol Calculated 156 mg/dL (<100); Potassium 3.9 mmol/L (3.3-5.1); Sodium 143 mmol/L (135-145); Total Protein 7.3 g/dL (6.5-8.0); Triglycerides 91 mg/dL (<150)
[2024-08-08 11:02] LABS: Ferritin 170 ng/mL (20-250); Free T4 (Free Thyroxine) 0.85 ng/dL (0.71-1.85); Thyroid Stimulating Hormone 0.66 uIU/mL (0.32-4.0)
[2024-08-08 11:06] LABS: HBS Num1 1.26 mIU/mL (0-7.99); HBc Num1 0.12 S/CO (0.00-0.79); HBsAGNum1 0.31 S/CO (0.00-0.99); Hepatitis B Core Antibody Nonreactive (Nonreactive); Hepatitis B Surface Antigen Negative (Negative); ~HepC Num1 0.18 S/CO (0.00-0.79); ~Hepatitis B Surface Antibody NONREACTIVE (Nonreactive); ~Hepatitis C Antibody Nonreactive (Nonreactive)
[2024-08-08 11:17] LABS: Folate 11.4 ng/mL (> or = 4.0); Vitamin B12 530 pg/mL (200-900)
== END 2024-08-08 08:57 | disposition home or self-care (01) ==
LOC: HO.HMGCX 08:56
PROVIDERS: PCP Internal Medicine; Visit Provider Internal Medicine
DX: R79.89 Other specified abnormal findings of blood chemistry (principal); F41.1 Generalized anxiety disorder; E78.00 Pure hypercholesterolemia, unspecified
CPT/HCPCS: 36415; 76700; 80053; 80061; 82607; 82728; 82746; 83036; 84439; 84443; 85025; 86704; 86706; 86803; 87340

== ENCOUNTER → 2024-08-08 08:59 | Outpatient (BNV) | payer OTHER, SELFPAY | PROVIDERS: PCP Internal Medicine; Visit Provider Radiology Diagnostic Radiology | DX: R79.89 Other specified abnormal findings of blood chemistry (principal) | CPT/HCPCS: 76700 ==

== ENCOUNTER 2024-08-22 08:46 | Outpatient (AMB) | payer OTHER, SELFPAY ==
--- NOTE | 2024-08-22 09:07 | A.OFFPC_ITS ---
Vital Signs 08/22/24 09:08 Height 6 ft 1 in Weight 215 lb 4 oz BMI 28.4 BP 124/64 Blood Pressure Location Lt brachial Position Sitting Pulse 58 Pulse Source Pulse Oximeter Temp 97.7 F Temp Source Temporal Artery Scan Pulse Oximetry (%) 98 Oxygen Delivery Method Room Air Intake Visit Reasons: Bi polar Meds Intake Note: Patient is here to follow up on Medication review. Nuclear Radiologist Required: No Dry Drug Worker: Present Accompanied by: Spouse Allergies amoxicillin [AMOXICILLIN] Allergy (Unknown, Verified 08/22/24 09:08) UNKNOWN Tobacco use date assessed: 08/22/24 Dental Screening Dental Screen Date: 07/18/24 [facility] Medical History (Updated 08/22/24 @ 09:14 by Jo Ann Segura MD) Difficulty swallowing LFT elevation Myoclonic jerking Chest pain Upper respiratory infection Skin lesion Depression Anxiety Surgical History (Updated 08/22/24 @ 09:11 by FELIX Curtis) No pertinent past surgical history Family History Mother Prediabetes Afib Father No problems noted. Sister No problems noted. Sister No problems noted. Sister No problems noted. Son No problems noted. Daughter No problems noted. Maternal Uncle Myocardial infarct Maternal Aunt Myocardial infarct Social History Housing: Apartment Alcohol intake: never Patient Tobacco Use Status: Current everyday Tobacco user Tobacco use type: Cigarette Cigarette Packs Per Day: 0.5 Cigarettes Per Day: 5 (pt states 3-5) Years Smoked: smoke e-Cigarette/Vaping Use: Never Used Second Hand Smoke Exposure: Yes service: No Current occupational status: unemployed Current occupational exposures/hazards: No Cognitive needs: No Hearing needs: No Vision needs: No Questionnaire Thrive Questionnaire Date Thrive assessed: 07/18/24 I am a: Patient What is your living situation today?: I have a steady place to live Within the past 12 months, did the food you bought not last and you didn't have the money to get more?: Sometimes True Within the past 12 months, did you worry whether your food would run out before you got money to buy more?: Sometimes True Do you have trouble paying for medicines?: No Do you have trouble getting transportation to medical appointments?: No Do you have trouble paying your heating and electricity bill?: Yes Do you have trouble taking care of your child, family member or friend?: No Do you have trouble with day-to-day activities such as bathing, preparing meals, shopping, managing finances, etc.?: Yes Are you currently unemployed and looking for a job?: No Are you interested in more education?: No Currently or been in a relationship where the following occur: No concerns reported THRIVE Score: 3 MAMADOU-7 AMB Questionnaire MAMADOU-7 Date MAMADOU - 7 assessed: 07/18/24 Source: Developed by Drs. Jay Douglas, Traci Adkins, Aubrey Reid and colleagues, with an educational casey from [employer]. Physical exam (Primary Care) Vital Signs: Last Vital Signs Temp 97.7 F 08/22/24 09:08 Pulse 58 08/22/24 09:08 BP 124/64 08/22/24 09:08 Pulse Ox 98 08/22/24 09:08 Oxygen Delivery Method Room Air 08/22/24 09:08 BMI result Body Mass Index 28.4 Tobacco/Smoking Status: Tobacco use Status Tobacco use date assessed 08/22/24 08/22/24 09:12 Patient Tobacco Use Status Current everyday Tobacco 08/22/24 09:12 Tobacco use type Cigarette 08/22/24 09:12 e-Cigarette/Vaping Use Never Used 08/22/24 09:12 Thrive Assessment: Date of Thrive Assessment Date Thrive assessed 07/18/24 08/22/24 09:12 Currently or been in a relationship where the following occur: No concerns reported Const General: alert; No acute distress Eyes Conjunctivae: conjunctivae normal Resp Auscultation: clear to auscultation bilaterally Cardio Rate: regular rate Rhythm: regular rhythm GI Inspection: Yes normal to inspection Extrem General: Yes normal to inspection and No edema Coding Level of Care Code Est Pt Level 4 (50520) Diagnoses Hepatic steatosis K76.0 Hypercholesterolemia E78.00 Overweight (BMI 25.0-29.9) E66.3 Generalized anxiety disorder F41.1 Gastroesophageal reflux disease without esophagitis K21.9 Esophagitis presence: without esophagitis Shoulder pain, right M25.511 Assessment & Plan Assessment & Plan (1) Hepatic steatosis: Code(s): K76.0 - Fatty (change of) liver, not elsewhere classified Category: Medical Plan: Low-fat diet and exercise and discussion about hepatic steatosis (2) Hypercholesterolemia: Code(s): E78.00 - Pure hypercholesterolemia, unspecified Category: Medical Plan: Avoid fried foods, chicken skin, eggs, butter margarine, pastries and meat. Be it pork or beef they have a lot of cholesterol LDL goal of less than 130 and triglyceride of less than 150. (3) Overweight (BMI 25.0-29.9): Code(s): E66.3 - Overweight Category: Medical Plan: Diet and exercise (4) Generalized anxiety disorder: Code(s): F41.1 - Generalized anxiety disorder Category: Medical Plan: Continue with present medication of bupropion (5) GERD (gastroesophageal reflux disease): Code(s): K21.9 - Gastro-esophageal reflux disease without esophagitis Category: Medical Qualifiers: Esophagitis presence: without esophagitis Qualified Code(s): K21.9 - Gastro-esophageal reflux disease without esophagitis Plan: Avoid the foods that causes that usually spicy foods, tomato products, juices, coffee, soda and foods that your sensitive to. After eating do not lie down, allow 3-4 hours before in lie down. And keep the head of bed above 30 degrees to avoid the acid from going up. (6) Shoulder pain, right: Comment: 2018 seperation Code(s): M25.511 - Pain in right shoulder Category: Medical Plan History of Present Illness The patient is a 33-year-old male presenting with multiple chronic conditions under management. He reported right shoulder pain during a previous examination, leading to a diagnostic imaging request. Recent laboratory assessments have shown normal hematologic and renal parameters but highlighted liver enzyme elevations and hypercholesterolemia. Imaging confirmed fatty liver. The patient is overweight and receives care to address hyperlipidemia and hepatic steatosis through lifestyle changes. Bupropion is currently prescribed for anxiety management, though its effectiveness is questioned. Smoking cessation is strongly advised due to extensive health risks. The patient prefers personal discussion for emotional matters. Health Maintenance - Discussed low-fat diet and exercise regimen for weight management and hepatic steatosis prevention. - Elevated liver function test and cholesterol management with target LDL <130 mg/dL and triglycerides <150 mg/dL. - Smoking cessation strongly advised due to significant health risks. 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 - Current smoker, advised on cessation. - Prefers personal discussions over formal counseling for emotional support. Review of Systems - Neurological: Denies counseling or therapy. - Respiratory: Denies any new respiratory symptoms. - Psychosocial: Reports dissatisfaction with current bupropion regimen. Physical Exam Results - Abdominal ultrasound: Revealed fatty liver. - Blood tests: Normal blood count, normal electrolytes, normal renal function, normal blood sugar. Elevated liver enzymes (one value 47, repeated at 52), elevated cholesterol (total cholesterol 206 mg/dL, LDL 156 mg/dL). Plan Management of the patient's health issues targets both metabolic and psychological components. For hepatic steatosis and hypercholesterolemia, a structured low-fat diet and regular exercise were advised to meet specific cholesterol targets. The patient expressed concerns about bupropion's effectiveness, and dosage adjustments are considered. Smoking cessation is heavily emphasized for reducing significant cancer risks. For ongoing anxiety management, reliance on personal discussions rather than formal therapy was expressed, but further support could be encouraged. Ongoing monitoring of liver function and cholesterol will assess progress. Patient was informed and verbally consented to the use of an ambient scribe for clinic note documentation during this visit. Discussion Notes I discussed the management options for hepatic steatosis and hypercholesterolemia with the patient, emphasizing the importance of dietary modifications and routine exercise to achieve specific cholesterol targets. We reviewed the safety profile and therapeutic effects of extended-release bupropion for anxiety, exploring dose adjustments to optimize outcomes. Discussions included smoking cessation due to its associated cancer risks, and patient support avenues were briefly covered. Further, I addressed ongoing shoulder pain evaluation findings. The patient voiced concerns regarding the effectiveness of his anxiety treatment regimen, and we agreed to potentially reassess his treatment plan. Follow-up visits were scheduled as appropriate to monitor progress. Patient Instructions - Follow a low-fat diet and regular exercise to manage weight and liver health. - Aim for cholesterol levels with LDL <130 mg/dL and triglycerides <150 mg/dL. - Stop smoking due to increased cancer risk. - Review bupropion dosage with reference to its therapeutic effectiveness. - Attend follow-up appointments for ongoing monitoring and health maintenance. Orders: Orders Free T4 (Free Thyroxine) 11 Months E78.00 - Pure hypercholesterolemia, unspecified Thyroid Stimulating Hormone 11 Months E78.00 - Pure hypercholesterolemia, unspecified Lipid Panel 11 Months E78.00 - Pure hypercholesterolemia, unspecified Vitamin B12 and Folate 11 Months E78.00 - Pure hypercholesterolemia, unspecified Hemoglobin A1c 11 Months E78.00 - Pure hypercholesterolemia, unspecified Complete Blood Count Auto Diff 11 Months E78.00 - Pure hypercholesterolemia, unspecified Comprehensive Met. Panel 11 Months E78.00 - Pure hypercholesterolemia, unspecified Medications: Changed From bupropion HCl XL (Wellbutrin XL) 150 mg PO QAM 30 tabs 2RF F41.1 - Generalized anxiety disorder To bupropion HCl XL 300 mg PO QAM 30 tabs 2RF F41.1 - Generalized anxiety disorder
[2024-08-22 09:08] VITALS: BP 124/64; PULSE 58; TEMP 36.5; O2SAT 98; BMI 28.4
== END 2024-08-22 11:15 | disposition home or self-care (01) ==
PROVIDERS: PCP Internal Medicine; Visit Provider Internal Medicine
DX: K76.0 Fatty (change of) liver, not elsewhere classified (principal); E78.00 Pure hypercholesterolemia, unspecified; E66.3 Overweight; F41.1 Generalized anxiety disorder; K21.9 Gastro-esophageal reflux disease without esophagitis; M25.511 Pain in right shoulder

== ENCOUNTER → 2024-08-22 08:46 | Outpatient (BNVA) | payer OTHER, SELFPAY | PROVIDERS: PCP Internal Medicine; Visit Provider Internal Medicine | DX: K76.0 Fatty (change of) liver, not elsewhere classified (principal); E78.00 Pure hypercholesterolemia, unspecified; E66.3 Overweight; Z68.28 Body mass index [BMI] 28.0-28.9, adult; F41.1 Generalized anxiety disorder; K21.9 Gastro-esophageal reflux disease without esophagitis; M25.511 Pain in right shoulder; Z71.3 Dietary counseling and surveillance | CPT/HCPCS: 99212 ==

== ENCOUNTER 2024-08-23 14:45 | Outpatient (REF) | payer OTHER, SELFPAY | END 2024-08-23 14:46 | disposition home or self-care (01) | LOC: HO.HOSX 14:45 | PROVIDERS: Visit Provider Orthopaedic Surgery | DX: Z13.89 Encounter for screening for other disorder (principal) ==

== ENCOUNTER 2024-09-18 07:36 | Outpatient (REF) | payer OTHER, SELFPAY | END 2024-09-18 07:37 | disposition home or self-care (01) | LOC: HO.HOSX 07:36 | PROVIDERS: Visit Provider Orthopaedic Surgery | DX: Z13.89 Encounter for screening for other disorder (principal) ==